=== PATIENT | male | born 1975 | race Caucasian/White ===

== ENCOUNTER 2022-08-15 15:59 | Emergency (ER) | payer MEDICAID, OTHER ==
[~2022-08-15] VITALS: Ht 175.3 cm; Wt 340.2 kg
[2022-08-15 18:34] LABS: ALANINE AMINOTRANSFERASE 11 U/L (12-78); ALCOHOL, BLOOD < 3 mg/dL (0-0); ALKALINE PHOSPHATASE 81 U/L (46-116); ASPARTATE AMINOTRANSFERASE 17 U/L (15-37); BILIRUBIN,DIRECT 0.2 mg/dL (0.0-0.2); BILIRUBIN,TOTAL 0.5 mg/dL (0.2-1.0); CALCIUM, SERUM 8.9 mg/dL (8.5-10.1); CARBON DIOXIDE 38 mmol/L (21-32); CHLORIDE 97 mmol/L (98-107); CREATININE 1.1 mg/dL (0.6-1.3); GLUCOSE 111 mg/dL (74-106); POTASSIUM 4.8 mmol/L (3.5-5.1); SODIUM SERUM 135 mmol/L (136-145); TOTAL PROTEIN, SERUM 10.3 g/dL (6.4-8.2); UREA NITROGEN, BLOOD 8 mg/dL (7-18)
[2022-08-15 19:53] LABS: BASOPHILS % (AUTO) 0.2 % (0.0-2.0); EOSINOPHILS % (AUTO) 3.1 % (0.0-6.0); HEMATOCRIT 36 % (39-51); HEMOGLOBIN 10.8 g/dL (13.5-17.5); LYMPHOCYTES # (AUTO) 0.7 K/uL (0.8-4.8); MEAN CORPUSCULAR HGB CONC 30 g/dl (31.0-36.0); MEAN CORPUSCULAR VOLUME 78 fL (80-96); MONOCYTES # (AUTO) 0.6 K/uL (0.1-1.30); MONOCYTES % (AUTO) 6.6 % (2.0-12.0); NEUTROPHILS # (AUTO) 7.3 K/uL (1.8-8.9); NEUTROPHILS % (AUTO) 82.1 % (43.0-81.0); PLATELET COUNT (AUTO) 362 K/uL (150-450); RED BLOOD CELL COUNT(AUTO) 4.56 MIL/uL (4.5-6.0); WHITE BLOOD COUNT (AUTO) 8.9 K/uL (4.3-11.0)
--- NOTE | 2022-08-15 20:45 | NUR ---
REPORT GIVEN TO RN FROM [facility] REGARDING D/C BACK TO FACILITY
--- NOTE | 2022-08-15 20:45 | NUR ---
[facility] D/C TRANSPORATION BACK TO FACILITY. STATED NO TRANSPORTATION AVAILABLE FOR D/C AND TO CALL IN MORNING AFTER CHANGE OF SHIFT TO F/U WITH TRANSPORTATION.
[2022-08-15 22:35] LABS: BAND % (MANUAL) 1 % (0.0-5.0); EOSINOPHILS % (MANUAL) 4 % (0-4); LYMPHOCYTES % (MANUAL) 11 % (16-48); MONOCYTES % (MANUAL) 7 % (0-11.0); NEUTROPHILS % (MANUAL) 77 (42-76)
--- NOTE | 2022-08-16 02:15 | NUR ---
URINE OUTPUT VIA F/C: 750ML
--- NOTE | 2022-08-16 02:35 | NUR ---
[facility] CALLED FOR BARIATRIC BOTH DENIED ACCOMODATION
--- NOTE | 2022-08-16 02:36 | NUR ---
[facility] AND [facility] CALLED @[phone]
[2022-08-16] MEDS: IV NS 0.9% 1,000 ML IV ONE (02:50)
--- NOTE | 2022-08-16 03:05 | NUR ---
Offered pt food and water. Pt tolerating well.
--- NOTE | 2022-08-16 04:44 | NUR ---
CALLED [facility], NO TAVAILABLE BARIATRIC TRANSPORT.
--- NOTE | 2022-08-16 04:45 | NUR ---
CALLED [facility]. PER DISPATCH, MEDICAL DOES NOT COVER TRANSPORT BACK TO [facility]. CANT BE TRANSPORTED BUT WILL BE BILLED TO HOSPITAL. ALSO, ADVICED TO CALL BACK AFTER 0700 FOR BETTER ETA.
--- NOTE | 2022-08-16 04:51 | NUR ---
CALLED [facility], DOES NOT HAVE BARIATRIC TRANSPORT.
--- NOTE | 2022-08-16 06:07 | NUR ---
CALLED [facility] FOR BARIATRIC TRANSPORT. NO AVAILABLE UNIT TODAY PER DISPATCH
--- NOTE | 2022-08-16 06:14 | NUR ---
CALLED [facility] FOR BARIATRIC TRANSPORT, NO AVAILABLE UNIT TODAY
--- NOTE | 2022-08-16 06:15 | NUR ---
[facility] DOES NOT HAVE ANY AVAILABILITY FOR BARIATRIC TRANSPORT.
--- NOTE | 2022-08-16 07:15 | NUR ---
RECEVED PT FROM [facility]IERA [facility] PT AWAKE AND ALERT WATING FOR TRNSFER
--- NOTE | 2022-08-16 07:25 | NUR ---
VSS. ENDORSED TERRENCE TO [facility].
--- NOTE | 2022-08-16 07:35 | NUR ---
[facility] CALLED FOR TRANSPORT ETA [id number]
--- NOTE | 2022-08-16 08:40 | NUR ---
RESTING AND COMFORTABLE AT THIS TIME WATING FOR AMPLANCE
--- NOTE | 2022-08-16 09:50 | NUR ---
F/C EMPTY ABOUT 600ML [employer] [employer]
--- NOTE | 2022-08-16 09:55 | NUR ---
Patient discharged to home in stable condition. Written and verbal after care instructions given. Patient verbalizes understanding of instruction.
[2022-08-16 10:16] VITALS: BP 104/75
== END 2022-08-16 10:17 ==
LOC: ER 16:01
DX: R53.1 Weakness (principal); Z00.00 Encounter for general adult medical examination without abnormal findings; I11.0 Hypertensive heart disease with heart failure; I50.9 Heart failure, unspecified; J96.90 Respiratory failure, unspecified, unspecified whether with hypoxia or hypercapnia; K21.9 Gastro-esophageal reflux disease without esophagitis; F32.A Depression, unspecified; Z88.8 Allergy status to other drugs, medicaments and biological substances
CPT/HCPCS: 99285; 93005; 85025; 80048; 80076; 85007; 36415; 82962; 80320; 96360; J7030 ×2; G0480